=== PATIENT | male | born 1950 | race Caucasian/White ===

== ENCOUNTER 2019-08-25 21:07 | Inpatient (IN) | payer OTHER, MEDICAID ==
[~2019-08-25] VITALS: Ht 167.6 cm; Wt 84.9 kg
[2019-08-25 21:10] VITALS: BP_SYST 117
[2019-08-25] MEDS ORDERED: NACL 0.9% 2,500 ML IV ONE (21:53)
[2019-08-25 22:06] LABS: BASOPHILS % (AUTO) 0.5 % (0.0-2.0); EOSINOPHILS % (AUTO) 0.2 % (0.0-4.0); HEMATOCRIT 42.8 % (36-54); HEMOGLOBIN 14.4 g/dL (14.0-18.0); LYMPHOCYTES # (AUTO) 1.8 K/uL (1.0-5.5); LYMPHOCYTES % (AUTO) 29.9 % (20.5-51.5); MEAN CORPUSCULAR HEMOGLOBIN 30 pg (27-31); MEAN CORPUSCULAR HGB CONC 34 % (32-36); MEAN CORPUSCULAR VOLUME 90 fL (79.0-98.0); MONOCYTES # (AUTO) 0.5 K/uL (0.0-1.0); MONOCYTES % (AUTO) 8.2 % (1.7-9.3); NEUTROPHILS # (AUTO) 3.7 K/uL (1.8-7.7); NEUTROPHILS % (AUTO) 61.2 % (40.0-70.0); PLATELET COUNT (AUTO) 180 K/uL (130-430); RED BLOOD CELL COUNT(AUTO) 4.75 MIL/uL (4.2-6.2); RED CELL DISTRIBUTION WIDTH 14.1 % (9.0-15.0)
[2019-08-25 22:08] LABS: CALCIUM 8.1 mg/dL (8.4-11.0); CREATININE 1.06 mg/dL (0.55-1.30); POTASSIUM 3.3 mmol/L (3.5-5.1)
[2019-08-25 22:14] LABS: ALBUMIN 3.7 g/dL (3.4-4.8); TOTAL BILIRUBIN 0.5 mg/dL (0.0-1.0)
[2019-08-25] MEDS ORDERED: LEVOFLOXACIN 500 MG/D5W 100 ML IV ONE (23:30)
[2019-08-26 01:32] LABS: BILIRUBIN,URINE NEGATIVE (NEGATIVE); BLOOD, URINE NEGATIVE (NEGATIVE); CLARITY/URINE CLEAR (CLEAR); COLOR,URINE YELLOW (YELLOW); GLUCOSE,URINE NEGATIVE (NEGATIVE); KETONES,URINE TRACE (NEGATIVE); LEUKOCYTE ESTERASE ,URINE NEGATIVE (NEGATIVE); NITRITE, URINE NEGATIVE (NEGATIVE); PROTEIN URINE TRACE (NEGATIVE); UROBILINOGEN,URINE 0.2 (0.2-1.0)
[2019-08-26 01:37] LABS: RBC,URINE 0-3 /HPF (0-3)
[2019-08-26 01:38] LABS: BACTERIA,URINE FEW /HPF (None Seen); WBC,URINE 0-3 /HPF (0-3)
[2019-08-26] MEDS ORDERED: FLU VACC TS2019(65UP)/MF59C/PF 45 MCG/0.5 ML SYRINGE I.M. PRN (02:30)
[2019-08-26] MEDS: D5NS 1,000 ML IV SCH ×2 (02:36→09:39)
[2019-08-26 02:43] VITALS: BP_SYST 126
[2019-08-26] MEDS ORDERED: LORazepam 2 MG/ML VIAL IVP PRN (08:45)
[2019-08-26] MEDS ORDERED: ACETAMINOPHEN 325 MG TABLET PO PRN (08:45)
[2019-08-26] MEDS ORDERED: HYDROcodone/ACETAMIN 5-325 MG TAB (NORCO/ VICODIN) PO PRN (08:45)
[2019-08-26] MEDS ORDERED: HYDROcodone/ACETAMIN 10-325 MG TAB PO PRN (08:45)
[2019-08-26] MEDS ORDERED: ONDANSETRON HCL 4 MG/2 ML VIAL IVP PRN (08:45)
[2019-08-26 12:14] VITALS: BP_SYST 121
[2019-08-26 16:17] VITALS: BP_SYST 131
[2019-08-26 20:41] VITALS: BP_SYST 132
[2019-08-26] MEDS: LEVOFLOXACIN 500 MG TABLET PO SCH (20:49)
[2019-08-27 00:39] VITALS: BP_SYST 135
[2019-08-27 00:41] LABS: BILIRUBIN,URINE NEGATIVE (NEGATIVE); BLOOD, URINE NEGATIVE (NEGATIVE); CLARITY/URINE CLEAR (CLEAR); COLOR,URINE YELLOW (YELLOW); GLUCOSE,URINE NEGATIVE (NEGATIVE); KETONES,URINE NEGATIVE (NEGATIVE); LEUKOCYTE ESTERASE ,URINE NEGATIVE (NEGATIVE); NITRITE, URINE NEGATIVE (NEGATIVE); PH,URINE 5.5 (5.0-8.0); PROTEIN URINE NEGATIVE (NEGATIVE); UROBILINOGEN,URINE 0.2 (0.2-1.0)
[2019-08-27] MEDS: D5NS 1,000 ML IV SCH ×2 (00:45→05:39)
[2019-08-27 06:31] LABS: ALANINE AMINOTRANSFERASE 101 U/L (12-78); ALBUMIN 3.2 g/dL (3.4-4.8); AMYLASE 36 U/L (0-100); ANION GAP 8 (5-15); ASPARTATE AMINOTRANSFERASE 71 U/L (10-37); CALCIUM 7.8 mg/dL (8.4-11.0); CHLORIDE 104 mmol/L (98-107); CREATININE 0.82 mg/dL (0.55-1.30); GLUCOSE 135 mg/dL (70-99); LIPASE 120 U/L (73-393); POTASSIUM 3.4 mmol/L (3.5-5.1); SODIUM SERUM 139 mmol/L (136-145); THYROID STIMULATING HORMONE 0.99 uIu/mL (0.36-3.74); TOTAL BILIRUBIN 0.4 mg/dL (0.0-1.0); UREA NITROGEN, BLOOD 14 mg/dL (8-21)
[2019-08-27 06:32] LABS: GFR AFRICAN AMERICAN 120 mL/min (>90)
[2019-08-27 06:48] LABS: CHOLESTEROL 159 mg/dL (<200); HDL CHOLESTEROL 37 mg/dL (>45); LDL CHOLESTEROL 109 mg/dL (<100); TRIGLYCERIDES 86 mg/dL (30-150)
[2019-08-27 07:02] LABS: BASOPHILS % (AUTO) 0.5 % (0.0-2.0); EOSINOPHILS % (AUTO) 0.1 % (0.0-4.0); HEMATOCRIT 40.4 % (36-54); HEMOGLOBIN 13.7 g/dL (14.0-18.0); LYMPHOCYTES # (AUTO) 1.1 K/uL (1.0-5.5); LYMPHOCYTES % (AUTO) 18.5 % (20.5-51.5); MEAN CORPUSCULAR HEMOGLOBIN 30 pg (27-31); MEAN CORPUSCULAR HGB CONC 34 % (32-36); MEAN CORPUSCULAR VOLUME 89 fL (79.0-98.0); MONOCYTES # (AUTO) 0.4 K/uL (0.0-1.0); MONOCYTES % (AUTO) 6.3 % (1.7-9.3); NEUTROPHILS # (AUTO) 4.5 K/uL (1.8-7.7); NEUTROPHILS % (AUTO) 74.6 % (40.0-70.0); PLATELET COUNT (AUTO) 178 K/uL (130-430); RED BLOOD CELL COUNT(AUTO) 4.52 MIL/uL (4.2-6.2); RED CELL DISTRIBUTION WIDTH 13.8 % (9.0-15.0); WHITE BLOOD COUNT (AUTO) 6.1 K/uL (4.8-10.8)
[2019-08-27 08:15] LABS: ERYTHROCYTE SEDIMENTATION RATE 5 MM/HR (0-15)
[2019-08-27 09:06] LABS: HEPATITIS A AB, IgM Negative (Negative); HEPATITIS B CORE AB, IgM Negative (Negative); HEPATITIS B SURFACE AG Negative (Negative)
[2019-08-27] MEDS ORDERED: POTASSIUM CHLORIDE 20 MEQ TAB.PRT.SR PO ONE (09:30)
[2019-08-27 13:00] VITALS: BP_SYST 124
[2019-08-27] MEDS: NORMAL SALINE 5 ML DISP.SYRIN IVF SCH ×2 (14:00→21:21)
[2019-08-27] MEDS ORDERED: FINA5TAB3 PO (15:00)
[2019-08-27] MEDS ORDERED: HYT1 PO (15:00)
[2019-08-27] MEDS ORDERED: FINASTERIDE 5 MG TABLET (PROSCAR) PO ONE (15:15)
[2019-08-27] MEDS ORDERED: TERAZOSIN HCL 5 MG CAPSULE (HYTRIN) PO ONE (15:30)
[2019-08-27 16:00] VITALS: BP_SYST 135
[2019-08-27 16:21] VITALS: BP_SYST 135
[2019-08-27 20:00] VITALS: BP_SYST 133
[2019-08-27] MEDS: LEVOFLOXACIN 500 MG TABLET PO SCH (21:20)
[2019-08-28] VITALS: BP_SYST 123
[2019-08-28 06:50] LABS: BASOPHILS % (AUTO) 0.1 % (0.0-2.0); EOSINOPHILS % (AUTO) 0.1 % (0.0-4.0); HEMATOCRIT 40.4 % (36-54); HEMOGLOBIN 13.5 g/dL (14.0-18.0); LYMPHOCYTES # (AUTO) 2.1 K/uL (1.0-5.5); LYMPHOCYTES % (AUTO) 30.9 % (20.5-51.5); MEAN CORPUSCULAR HEMOGLOBIN 30 pg (27-31); MEAN CORPUSCULAR HGB CONC 34 % (32-36); MEAN CORPUSCULAR VOLUME 90 fL (79.0-98.0); MONOCYTES # (AUTO) 0.5 K/uL (0.0-1.0); MONOCYTES % (AUTO) 7.1 % (1.7-9.3); NEUTROPHILS # (AUTO) 4.2 K/uL (1.8-7.7); NEUTROPHILS % (AUTO) 61.8 % (40.0-70.0); PLATELET COUNT (AUTO) 179 K/uL (130-430); RED BLOOD CELL COUNT(AUTO) 4.51 MIL/uL (4.2-6.2); WHITE BLOOD COUNT (AUTO) 6.8 K/uL (4.8-10.8)
[2019-08-28 07:04] LABS: ALBUMIN 3.2 g/dL (3.4-4.8); C-REACTIVE PROTEIN QUANT 4.8 mg/dL (0-0.5); CALCIUM 7.9 mg/dL (8.4-11.0); CREATININE 0.89 mg/dL (0.55-1.30); POTASSIUM 3.1 mmol/L (3.5-5.1); TOTAL BILIRUBIN 0.7 mg/dL (0.0-1.0)
[2019-08-28 08:04] VITALS: BP_SYST 121
[2019-08-28 08:05] LABS: ERYTHROCYTE SEDIMENTATION RATE 13 MM/HR (0-15)
[2019-08-28] MEDS ORDERED: TERAZOSIN HCL 5 MG CAPSULE (HYTRIN) PO SCH (09:00)
[2019-08-28] MEDS ORDERED: FINASTERIDE 5 MG TABLET (PROSCAR) PO SCH (09:00)
[2019-08-28] MEDS ORDERED: POTASSIUM CHLORIDE 20 MEQ TAB.PRT.SR PO ONE (10:30)
[2019-08-28 12:35] VITALS: BP_SYST 117
[2019-08-28] MEDS: NORMAL SALINE 5 ML DISP.SYRIN IVF SCH (14:44)
[2019-08-28 16:10] VITALS: BP_SYST 114
[2019-08-28 17:26] VITALS: BP_SYST 117
== END 2019-08-28 17:45 | disposition home or self-care (01) | DRG 315 ==
LOC: SED 21:07 → STU 23:39 → SMU 08-27 11:00
PROVIDERS: ADMIT Preventive Medicine Preventive Medicine/Occupational Environmental Medicine; ATTEND Preventive Medicine Preventive Medicine/Occupational Environmental Medicine
DX: I95.9 Hypotension, unspecified (principal); E44.0 Moderate protein-calorie malnutrition; K52.9 Noninfective gastroenteritis and colitis, unspecified; K29.70 Gastritis, unspecified, without bleeding; E78.5 Hyperlipidemia, unspecified; E83.51 Hypocalcemia; E87.6 Hypokalemia; N18.9 Chronic kidney disease, unspecified; N40.0 Benign prostatic hyperplasia without lower urinary tract symptoms; R73.9 Hyperglycemia, unspecified; Z79.899 Other long term (current) drug therapy; Z68.30 Body mass index [BMI] 30.0-30.9, adult
CPT/HCPCS: 36415; 70450-TC; 71045; 76700-TC; 80053; 80061; 80074; 81000-TC; 81003; 82150-TC; 83605; 83690-TC; 84443-TC; 84484; 85025; 85651-TC; 86140; 87040-TC; 87045-TC; 87086; 87230-TC; 89055; 93005; 93306; 93880; 96361; 96365; 99285; G0378; J1956; J2405; J7042